=== PATIENT | female | born 1985 | race African-American/Black ===

== ENCOUNTER 2018-02-11 03:36 | Inpatient (IN) | payer SELFPAY ==
[2018-02-11 04:20] LABS: URINE HCG POC HCG NEGATIVE (Negative)
[2018-02-11 04:44] LABS: BASO # 0.1 x10^3/uL (0.0-0.2); BASO % 1 % (0-3); EOS # 0.1 x10^3/uL (0.0-0.7); EOS % 2 % (0-3); LYMPH # 3.2 x10^3/uL (1.0-4.8); LYMPH % 55 % (24-48); MEAN CORPUSCULAR HEMOGLOBIN 17 pg (25-35); MEAN CORPUSCULAR HGB CONC 29 g/dL (31-37); MEAN CORPUSCULAR VOLUME 56 fL (79-100); MONO # 0.4 x10^3/uL (0.0-1.1); MONO % 6 % (0-9); NEUT # 2.2 x10^3uL (1.8-7.7); NEUT % 37 % (31-73); PLATELET COUNT 275 x10^3/uL (140-400); RED BLOOD COUNT 3.62 x10^6/uL (3.50-5.40); RED CELL DISTRIBUTION WIDTH 19.8 % (11.5-14.5); WHITE BLOOD COUNT 5.9 x10^3/uL (4.0-11.0)
[2018-02-11] MEDS: KETOROLAC 30 MG/ML INJ. IV (04:46)
[2018-02-11 04:47] LABS: ANION GAP 10 (6-14); BLOOD UREA NITROGEN 16 mg/dL (7-20); CALCIUM 8.8 mg/dL (8.5-10.1); CARBON DIOXIDE 27 mmol/L (21-32); CHLORIDE 102 mmol/L (98-107); CREATININE 0.7 mg/dL (0.6-1.0); GFR 115.9; GLUCOSE 98 mg/dL (70-99); POTASSIUM 3.7 mmol/L (3.5-5.1); SODIUM 139 mmol/L (136-145)
[2018-02-11 04:59] LABS: ADD MAN DIFF? YES; HEMATOCRIT 20.4 % (36.0-47.0)
[2018-02-11] MEDS: ONDANSETRON PF 4 MG/2 ML VIAL. IV (05:06)
[2018-02-11] MEDS: MORPHINE SULFATE 4 MG/ML DISP.SYRIN. IV ×3 (05:06→08:19)
[2018-02-11] MEDS: IV NORMAL SALINE 1000ML BAG 1,000 ML IV ×3 (05:24→21:15)
[2018-02-11] MEDS ORDERED: ONDANSETRON PF 4 MG/2 ML VIAL. IV (05:45)
[2018-02-11 06:28] LABS: % BASOS 1 % (0-3); % EOS 2 % (0-5); % LYMPHS 55 % (24-48); % MONOS 3 % (0-10); % SEGS 39 % (35-66); PLT ESTIMATE ADEQUATE (ADEQUATE)
[2018-02-11 06:29] LABS: ANISOCYTOSIS SLIGHT; HYPOCHROMIA MARKED; POIKILOCYTOSIS MOD; SCHISTOCYTES OCC
[2018-02-11] MEDS ORDERED: oxyCODONE/APAP 5/325 1 TAB TABLET PO (09:45)
[2018-02-11] MEDS: oxyCODONE/APAP 5/325 1 TAB TABLET PO ×4 (10:04→22:25)
[2018-02-11] MEDS: IBUPROFEN 800 MG TABLET. PO ×2 (11:05→21:11)
[2018-02-11 11:08] LABS: BILIRUBIN,URINE MODERATE (NEG); CLARITY,URINE TURBID; COLOR,URINE RED; GLUCOSE,URINE NEGATIVE (NEG); NITRITE,URINE POSITIVE (NEG); PH,URINE 5.5; PROTEIN,URINE 100 mg/dL (NEG-TRACE)
[2018-02-11 11:41] LABS: BACTERIA,URINE FEW /HPF (0-FEW); RBC,URINE TNTC /HPF (0-2); SQUAMOUS EPITHELIAL CELL,UR OCC /LPF; WBC,URINE 20-40 /HPF (0-4)
[2018-02-11] MEDS: cefTRIAXone IV Push 1 GM VIAL. IVP (13:50)
[2018-02-11] MEDS: PHENAZOPYRIDINE 200 MG TABLET. PO ×2 (14:09→21:11)
[2018-02-11 15:16] LABS: MEAN CORPUSCULAR HEMOGLOBIN 18 pg (25-35); MEAN CORPUSCULAR HGB CONC 30 g/dL (31-37); MEAN CORPUSCULAR VOLUME 60 fL (79-100); PLATELET COUNT 232 x10^3/uL (140-400); RED BLOOD COUNT 3.45 x10^6/uL (3.50-5.40); RED CELL DISTRIBUTION WIDTH 22.9 % (11.5-14.5); WHITE BLOOD COUNT 8.4 x10^3/uL (4.0-11.0)
[2018-02-11 15:22] LABS: HEMATOCRIT 20.7 % (36.0-47.0); HEMOGLOBIN 6.2 g/dL (12.0-15.5)
[2018-02-12] MEDS: oxyCODONE/APAP 5/325 1 TAB TABLET PO ×4 (02:50→16:30)
[2018-02-12 04:29] LABS: ADD MAN DIFF? NO
[2018-02-12 04:44] LABS: BASO # 0.1 x10^3/uL (0.0-0.2); BASO % 1 % (0-3); EOS # 0.1 x10^3/uL (0.0-0.7); EOS % 1 % (0-3); HEMATOCRIT 22.7 % (36.0-47.0); LYMPH # 3.8 x10^3/uL (1.0-4.8); LYMPH % 39 % (24-48); MEAN CORPUSCULAR HEMOGLOBIN 19 pg (25-35); MEAN CORPUSCULAR HGB CONC 31 g/dL (31-37); MEAN CORPUSCULAR VOLUME 63 fL (79-100); MONO # 0.5 x10^3/uL (0.0-1.1); MONO % 5 % (0-9); NEUT # 5.2 x10^3uL (1.8-7.7); NEUT % 54 % (31-73); PLATELET COUNT 203 x10^3/uL (140-400); RED BLOOD COUNT 3.61 x10^6/uL (3.50-5.40); RED CELL DISTRIBUTION WIDTH 26.7 % (11.5-14.5); WHITE BLOOD COUNT 9.6 x10^3/uL (4.0-11.0)
[2018-02-12] MEDS: IV NORMAL SALINE 1000ML BAG 1,000 ML IV (04:53)
[2018-02-12 05:11] LABS: HEMOGLOBIN 6.9 g/dL (12.0-15.5)
[2018-02-12] MEDS: FERROUS SULFATE 325 MG TABLET. PO (07:30)
[2018-02-12 10:20] LABS: IMMEDIATE SPIN CROSSMATCH 1 3
[2018-02-12] MEDS: NORETHINDRONE ACETATE 5 MG TABLET PO (12:27)
[2018-02-12 16:02] LABS: HEMATOCRIT 26.3 % (36.0-47.0); HEMOGLOBIN 8.1 g/dL (12.0-15.5); MEAN CORPUSCULAR HEMOGLOBIN 20 pg (25-35); MEAN CORPUSCULAR HGB CONC 31 g/dL (31-37); MEAN CORPUSCULAR VOLUME 65 fL (79-100); PLATELET COUNT 207 x10^3/uL (140-400); RED BLOOD COUNT 4.02 x10^6/uL (3.50-5.40); RED CELL DISTRIBUTION WIDTH 29.2 % (11.5-14.5); WHITE BLOOD COUNT 6.5 x10^3/uL (4.0-11.0)
[2018-02-12] MEDS ORDERED: BISACODYL 10 MG SUPP.RECT. PR (16:30)
[2018-02-12] MEDS: cefTRIAXone IV Push 1 GM VIAL. IVP (16:32)
== END 2018-02-12 20:15 | disposition home or self-care (01) | DRG 761 ==
LOC: ER 03:36 → 3 NORTH 05:51
PROVIDERS: Obstetrics & Gynecology
PROC: 30233N1 Transfusion of Nonautologous Red Blood Cells into Peripheral Vein, Percutaneous Approach (ICD-10-PCS; principal; 2018-02-11)
PROC: 30233N1 Transfusion of Nonautologous Red Blood Cells into Peripheral Vein, Percutaneous Approach (ICD-10-PCS; 2018-02-12)
DX: D25.9 Leiomyoma of uterus, unspecified (principal); D50.0 Iron deficiency anemia secondary to blood loss (chronic); G89.29 Other chronic pain; D50.9 Iron deficiency anemia, unspecified; N93.8 Other specified abnormal uterine and vaginal bleeding; M25.571 Pain in right ankle and joints of right foot; N92.0 Excessive and frequent menstruation with regular cycle; Z88.6 Allergy status to analgesic agent; Z90.721 Acquired absence of ovaries, unilateral; Z90.79 Acquired absence of other genital organ(s)
CPT/HCPCS: 36415; 76856; 80048; 81001; 81025; 85007; 85025; 85027; 86850; 86900; 86901; 86920; 87086; 96361; 96374; 96375; 99285-25; J0696; J1885; J2270; J2405; J7030; P9016

== ENCOUNTER 2018-02-18 18:24 | Emergency (ER) | payer SELFPAY ==
[2018-02-18 18:52] LABS: URINE HCG POC HCG NEGATIVE (Negative)
[2018-02-18] MEDS: IV NORMAL SALINE 1000ML BAG 1,000 ML IV (19:22)
[2018-02-18] MEDS: MORPHINE SULFATE 4 MG/ML DISP.SYRIN. IV (19:22)
[2018-02-18 19:30] LABS: BASO # 0.1 x10^3/uL (0.0-0.2); BASO % 1 % (0-3); EOS # 0.1 x10^3/uL (0.0-0.7); EOS % 1 % (0-3); HEMATOCRIT 35.2 % (36.0-47.0); LYMPH % 41 % (24-48); MEAN CORPUSCULAR HEMOGLOBIN 21 pg (25-35); MEAN CORPUSCULAR HGB CONC 31 g/dL (31-37); MEAN CORPUSCULAR VOLUME 66 fL (79-100); MONO # 0.5 x10^3/uL (0.0-1.1); MONO % 6 % (0-9); NEUT # 3.7 x10^3uL (1.8-7.7); NEUT % 51 % (31-73); PLATELET COUNT 334 x10^3/uL (140-400); RED BLOOD COUNT 5.31 x10^6/uL (3.50-5.40); RED CELL DISTRIBUTION WIDTH 31.9 % (11.5-14.5); WHITE BLOOD COUNT 7.3 x10^3/uL (4.0-11.0)
[2018-02-18 19:31] LABS: BILIRUBIN,URINE NEGATIVE (NEG); CLARITY,URINE CLEAR; COLOR,URINE YELLOW; GLUCOSE,URINE NEGATIVE (NEG); NITRITE,URINE NEGATIVE (NEG); PH,URINE 5.5; PROTEIN,URINE 30 mg/dL (NEG-TRACE)
[2018-02-18 19:42] LABS: ADD MAN DIFF? YES; ANION GAP 8 (6-14); BLOOD UREA NITROGEN 16 mg/dL (7-20); BUN/CREATININE RATIO 23 (6-20); CALCIUM 9.1 mg/dL (8.5-10.1); CARBON DIOXIDE 26 mmol/L (21-32); CHLORIDE 102 mmol/L (98-107); CREATININE 0.7 mg/dL (0.6-1.0); GFR 115.9; GLUCOSE 86 mg/dL (70-99); POTASSIUM 3.9 mmol/L (3.5-5.1); SODIUM 136 mmol/L (136-145)
[2018-02-18 19:45] LABS: BACTERIA,URINE FEW /HPF (0-FEW); RBC,URINE OCC /HPF (0-2); SQUAMOUS EPITHELIAL CELL,UR FEW /LPF; WBC,URINE OCC /HPF (0-4)
[2018-02-18 19:48] LABS: ALBUMIN 3.9 g/dL (3.4-5.0); ALBUMIN/GLOBULIN RATIO 0.8 (1.0-1.7); ALK PHOS 50 U/L (46-116); ALT (SGPT) 27 U/L (14-59); AST (SGOT) 21 U/L (15-37); TOTAL BILIRUBIN 0.2 mg/dL (0.2-1.0); TOTAL PROTEIN 8.5 g/dL (6.4-8.2)
[2018-02-18 20:06] LABS: % BASOS 1 % (0-3); % EOS 4 % (0-5); % LYMPHS 40 % (24-48); % MONOS 4 % (0-10); % SEGS 51 % (35-66); OVALOCYTES OCC; PLT ESTIMATE INCREASED (ADEQUATE); POLYCHROMASIA SLIGHT; SCHISTOCYTES OCC
[2018-02-18] MEDS: HYDROcodone/APAP 10/325 1 TAB TABLET PO (20:54)
[2018-02-18] MEDS: MECLIZINE HCL 12.5 MG TABLET. PO (20:54)
[2018-02-18] MEDS: ONDANSETRON ODT 4 MG TAB.RAPDIS. PO (20:54)
== END 2018-02-18 21:00 | disposition home or self-care (01) ==
LOC: ER 18:24
DX: D25.9 Leiomyoma of uterus, unspecified (principal); R55 Syncope and collapse; G89.29 Other chronic pain; Z90.722 Acquired absence of ovaries, bilateral
CPT/HCPCS: 36415; 80053; 81001; 81025; 84702; 85007; 85025; 93005; 96361; 96374; 99285-25; J2270; J7030; J8597; Q0162

== ENCOUNTER 2018-03-31 10:51 | Emergency (ER) | payer SELFPAY ==
[2018-03-31 11:11] LABS: URINE HCG POC HCG NEGATIVE (Negative)
[2018-03-31 11:12] LABS: BILIRUBIN,URINE NEGATIVE (NEG); CLARITY,URINE CLEAR; COLOR,URINE YELLOW; GLUCOSE,URINE NEGATIVE (NEG); NITRITE,URINE NEGATIVE (NEG); PH,URINE 6.5; PROTEIN,URINE NEGATIVE (NEG-TRACE)
[2018-03-31] MEDS: HYDROcodone/APAP 5/325MG 1 TAB TABLET PO (11:15)
[2018-03-31 11:40] LABS: BACTERIA,URINE FEW /HPF (0-FEW); SQUAMOUS EPITHELIAL CELL,UR MANY /LPF
[2018-03-31] MEDS: BISACODYL 5 MG TABLET.DR. PO (12:11)
[2018-03-31] MEDS: ONDANSETRON ODT 4 MG TAB.RAPDIS. PO (12:11)
[2018-03-31] MEDS: MAGNESIUM CITRATE 296 ML SOLUTION. PO (12:12)
== END 2018-03-31 12:25 | disposition left against medical advice (07) ==
LOC: ER 10:51
DX: K59.00 Constipation, unspecified (principal); R10.9 Unspecified abdominal pain; G89.29 Other chronic pain; Z88.8 Allergy status to other drugs, medicaments and biological substances
CPT/HCPCS: 81001; 81025; 99284; Q0162

== ENCOUNTER 2018-06-04 21:33 | Emergency (ER) | payer SELFPAY ==
[~2018-06-04] VITALS: Ht 160 cm; Wt 69.9 kg
[~2018-06-04 21:33] MED LIST: MECL25TA3 PO; NORE5TAB PO; ONDA4TAB7 PO; OXYC-323 PO; OXYC1TAB7 PO
[2018-06-04 22:35] LABS: CALCIUM 9.3 mg/dL (8.5-10.1); CREATININE 0.7 mg/dL (0.6-1.0); GFR 115.9; POTASSIUM 4.5 mmol/L (3.5-5.1)
[2018-06-04 22:36] LABS: BASO # 0.1 x10^3/uL (0.0-0.2); BASO % 1 % (0-3); EOS # 0.2 x10^3/uL (0.0-0.7); EOS % 3 % (0-3); HEMATOCRIT 28.9 % (36.0-47.0); HEMOGLOBIN 8.8 g/dL (12.0-15.5); LYMPH # 2.3 x10^3/uL (1.0-4.8); LYMPH % 35 % (24-48); MEAN CORPUSCULAR HEMOGLOBIN 22 pg (25-35); MEAN CORPUSCULAR HGB CONC 31 g/dL (31-37); MEAN CORPUSCULAR VOLUME 70 fL (79-100); MONO # 0.5 x10^3/uL (0.0-1.1); MONO % 7 % (0-9); NEUT # 3.5 x10^3uL (1.8-7.7); NEUT % 53 % (31-73); PLATELET COUNT 242 x10^3/uL (140-400); RED CELL DISTRIBUTION WIDTH 21.5 % (11.5-14.5); WHITE BLOOD COUNT 6.5 x10^3/uL (4.0-11.0)
[2018-06-04 22:42] LABS: ALBUMIN 3.8 g/dL (3.4-5.0); TOTAL BILIRUBIN 0.6 mg/dL (0.2-1.0); TOTAL PROTEIN 7.8 g/dL (6.4-8.2)
[2018-06-04] MEDS: IV NORMAL SALINE 1000ML BAG 1,000 ML IV ONE (22:54)
[2018-06-04 23:00] LABS: BILIRUBIN,URINE NEGATIVE (NEG); CLARITY,URINE CLEAR; COLOR,URINE YELLOW; NITRITE,URINE NEGATIVE (NEG); PROTEIN,URINE NEGATIVE (NEG-TRACE)
[2018-06-04 23:10] LABS: BACTERIA,URINE MODERATE /HPF (0-FEW); RBC,URINE OCC /HPF (0-2); SQUAMOUS EPITHELIAL CELL,UR MOD /LPF
[2018-06-04] MEDS: ONDANSETRON PF 4 MG/2 ML VIAL. IV ONE (23:18)
[2018-06-04] MEDS: fentaNYL PF VIAL 100 MCG/2 ML VIAL IV ONE (23:19)
[2018-06-04 23:27] LABS: ANISOCYTOSIS MOD; HYPOCHROMIA MOD; MICROCYTOSIS MOD; PLT ESTIMATE ADEQUATE (ADEQUATE); POLYCHROMASIA SLIGHT
[2018-06-04 23:28] LABS: OVALOCYTES OCC; TEAR DROP CELLS OCC
[2018-06-04 23:29] LABS: POIKILOCYTOSIS PRESENT; SCHISTOCYTES FEW
[2018-06-04] MEDS ORDERED: CONTRAST GIVEN. MC PRN (23:45)
[2018-06-04] MEDS: IOHEXOL 300 MG/ML 100ML VIAL. IV ONE (23:53)
--- NOTE | 2018-06-05 00:09 | RAD ---
PQRS Compliance statement: One or more of the following individualized dose reduction techniques were utilized for this examination: 1. Automated exposure control. 2. Adjustment of the mA and/or kV according to patient size. 3. Use of iterative reconstruction technique. Indication:abd pain,vaginal bleeding; post hysterectomy x 1 week ago; Omni 300, 75ml TECHNIQUE: CT abdomen and pelvis with IV contrast with multiplanar reformats. COMPARISON: 05/27/2014 FINDINGS: Heart is normal in size. No pericardial or pleural effusion. Clear lung bases. Liver, spleen, gallbladder, pancreas, adrenals and right kidney within normal limits. Punctate nonobstructing left renal stone. No enlarged retroperitoneal or pelvic adenopathy. No free pelvic fluid or ascites. No bowel obstruction. Normal appendix. Status post hysterectomy. Urinary bladder within normal limits. No pneumoperitoneum. Abdominal wall inflammatory changes seen likely postsurgical. Trace amount of ascites seen in the vaginal canal. No suspicious bony lesion. IMPRESSION: 1. Status post cystectomy. No loculated fluid collection or pelvis to suggest abscess or seroma. 2. Punctate nonobstructing left renal stone. 3. Anterior abdominal wall inflammatory changes with trace emphysema most likely postsurgical changes. Electronically signed by: Boaz Martinez DO (06/05/2018 12:05 AM) [facility]
[2018-06-05] MEDS: fentaNYL PF VIAL 100 MCG/2 ML VIAL IV ONE (00:29)
--- NOTE | 2018-06-05 00:29 | PHYS DOC ---
Past Medical History Past Medical History: No Pertinent History Additional Past Medical Histor: chronic right ankle pain, FIBROIDS Past Surgical History: , Hysterectomy, Tubal ligation Additional Past Surgical Histo: L) fallopian tube removed, ECTOPIC Additional Information: 09/10 PPD Alcohol Use: None Drug Use: None Adult General Chief Complaint Chief Complaint: VAGINAL BLEEDING [facility] HPI Patient is a 33 year old [f__sex] who presents with [] Review of Systems Review of Systems Constitutional: Denies fever or chills [] Eyes: Denies change in visual acuity, redness, or eye pain [] HENT: Denies nasal congestion or sore throat [] Respiratory: Denies cough or shortness of breath [] Cardiovascular: No additional information not addressed in HPI [] GI: Denies abdominal pain, nausea, vomiting, bloody stools or diarrhea [] : Denies dysuria or hematuria [] Musculoskeletal: Denies back pain or joint pain [] Integument: Denies rash or skin lesions [] Neurologic: Denies headache, focal weakness or sensory changes [] Endocrine: Denies polyuria or polydipsia [] All other systems were reviewed and found to be within normal limits, except as documented in this note. Current Medications Current Medications Current Medications Medications (Trade) Dose Ordered Sig/Corinne Start Time Stop Time Status Last Admin Dose Admin Fentanyl Citrate (Fentanyl 2ml Vial) 50 mcg 1X ONCE 06/05/18 00:45 06/05/18 00:46 DC 06/05/18 00:29 50 MCG Info (CONTRAST GIVEN -- Rx MONITORING) 1 each PRN DAILY PRN 06/04/18 23:45 06/06/18 23:44 Iohexol (Omnipaque 300 Mg/ml) 75 ml 1X ONCE 06/04/18 23:45 06/04/18 23:46 DC 06/04/18 23:53 75 ML Ondansetron HCl (Zofran) 4 mg 1X ONCE 06/04/18 23:30 06/04/18 23:31 DC 06/04/18 23:18 4 MG Sodium Chloride 1,000 ml @ 1,000 mls/hr 1X ONCE 06/04/18 23:00 06/04/18 23:59 DC 06/04/18 22:54 1,000 MLS/HR Allergies Allergies Allergies Coded Allergies Type Severity Reaction Last Updated Verified naproxen Allergy Intermediate "Chest hurts" 11/3/14 Yes Physical Exam Physical Exam Constitutional: Well developed, well nourished, no acute distress, non-toxic appearance. [] HENT: Normocephalic, atraumatic, bilateral external ears normal, oropharynx moist, no oral exudates, nose normal. [] Eyes: PERRLA, EOMI, conjunctiva normal, no discharge. [] Neck: Normal range of motion, no tenderness, supple, no stridor. [] Cardiovascular:Heart rate regular rhythm, no murmur [] Lungs & Thorax: Bilateral breath sounds clear to auscultation [] Abdomen: Bowel sounds normal, soft, no tenderness, no masses, no pulsatile masses. [] Skin: Warm, dry, no erythema, no rash. [] Back: No tenderness, no CVA tenderness. [] Extremities: No tenderness, no cyanosis, no clubbing, ROM intact, no edema. [] Neurologic: Alert and oriented X 3, normal motor function, normal sensory function, no focal deficits noted. [] Psychologic: Affect normal, judgement normal, mood normal. [] Current Patient Data Vital Signs Vital Signs Date Time Temp Pulse Resp B/P (MAP) Pulse Ox O2 Delivery O2 Flow Rate FiO2 06/05/18 00:29 15 100 Room Air 06/04/18 21:42 99.6 66 184/89 (120) 99.6 Lab Values Laboratory Tests Test 06/04/18 21:55 06/04/18 22:34 06/04/18 23:28 White Blood Count 6.5 x10^3/uL (4.0-11.0) Red Blood Count 4.10 x10^6/uL (3.50-5.40) Hemoglobin 8.8 g/dL (12.0-15.5) L Hematocrit 28.9 % (36.0-47.0) L Mean Corpuscular Volume 70 fL (79-100) L Mean Corpuscular Hemoglobin 22 pg (25-35) L Mean Corpuscular Hemoglobin Concent 31 g/dL (31-37) Red Cell Distribution Width 21.5 % (11.5-14.5) H Platelet Count 242 x10^3/uL (140-400) Neutrophils (%) (Auto) 53 % (31-73) Lymphocytes (%) (Auto) 35 % (24-48) Monocytes (%) (Auto) 7 % (0-9) Eosinophils (%) (Auto) 3 % (0-3) Basophils (%) (Auto) 1 % (0-3) Neutrophils # (Auto) 3.5 x10^3uL (1.8-7.7) Lymphocytes # (Auto) 2.3 x10^3/uL (1.0-4.8) Monocytes # (Auto) 0.5 x10^3/uL (0.0-1.1) Eosinophils # (Auto) 0.2 x10^3/uL (0.0-0.7) Basophils # (Auto) 0.1 x10^3/uL (0.0-0.2) Platelet Estimate Adequate (ADEQUATE) Giant Platelets Present Polychromasia Slight Hypochromasia Mod Poikilocytosis Present Anisocytosis Mod Microcytosis Mod Tear Drop Cells Occ Ovalocytes Occ Schistocytes Few Sodium Level 140 mmol/L (136-145) Potassium Level 4.5 mmol/L (3.5-5.1) Chloride Level 104 mmol/L (98-107) Carbon Dioxide Level 29 mmol/L (21-32) Anion Gap 7 (6-14) Blood Urea Nitrogen 13 mg/dL (7-20) Creatinine 0.7 mg/dL (0.6-1.0) Estimated GFR (Cockcroft-Gault) 115.9 BUN/Creatinine Ratio 19 (6-20) Glucose Level 89 mg/dL (70-99) Calcium Level 9.3 mg/dL (8.5-10.1) Total Bilirubin 0.6 mg/dL (0.2-1.0) Aspartate Amino Transferase (AST) 27 U/L (15-37) Alanine Aminotransferase (ALT) 16 U/L (14-59) Alkaline Phosphatase 44 U/L (46-116) L Total Protein 7.8 g/dL (6.4-8.2) Albumin 3.8 g/dL (3.4-5.0) Albumin/Globulin Ratio 1.0 (1.0-1.7) Lipase 98 U/L (73-393) Urine Collection Type Unknown Urine Color Yellow Urine Clarity Clear Urine pH 7.0 Urine Specific [place] 1.020 Urine Protein Negative mg/dL (NEG-TRACE) Urine Glucose (UA) Negative mg/dL (NEG) Urine Ketones (Stick) Negative mg/dL (NEG) Urine Blood Moderate (NEG) Urine Nitrite Negative (NEG) Urine Bilirubin Negative (NEG) Urine Urobilinogen Dipstick 2.0 mg/dL (0.2 mg/dL) Urine Leukocyte Esterase Moderate (NEG) Urine RBC Occ /HPF (0-2) Urine WBC 5-10 /HPF (0-4) Urine Squamous Epithelial Cells Mod /LPF Urine Bacteria Moderate /HPF (0-FEW) Urine Mucus Slight /LPF Prothrombin Time 14.0 SEC (11.7-14.0) Prothrombin Time INR 1.1 (0.8-1.1) PTT 28 SEC (24-38) Laboratory Tests 06/04/18 21:55 Laboratory Tests 06/04/18 21:55 EKG EKG [] Radiology/Procedures Radiology/Procedures PROCEDURE: CT ABD PELV W/ IV CONTRST ONLY PQRS Compliance statement: One or more of the following individualized dose reduction techniques were utilized for this examination: 1. Automated exposure control. 2. Adjustment of the mA and/or kV according to patient size. 3. Use of iterative reconstruction technique. Indication:abd pain,vaginal bleeding; post hysterectomy x 1 week ago; Omni 300, 75ml TECHNIQUE: CT abdomen and pelvis with IV contrast with multiplanar reformats. COMPARISON: 05/27/2014 FINDINGS: Heart is normal in size. No pericardial or pleural effusion. Clear lung bases. Liver, spleen, gallbladder, pancreas, adrenals and right kidney within normal limits. Punctate nonobstructing left renal stone. No enlarged retroperitoneal or pelvic adenopathy. No free pelvic fluid or ascites. No bowel obstruction. Normal appendix. Status post hysterectomy. Urinary bladder within normal limits. No pneumoperitoneum. Abdominal wall inflammatory changes seen likely postsurgical. Trace amount of ascites seen in the vaginal canal. No suspicious bony lesion. IMPRESSION: 1. Status post cystectomy. No loculated fluid collection or pelvis to suggest abscess or seroma. 2. Punctate nonobstructing left renal stone. 3. Anterior abdominal wall inflammatory changes with trace emphysema most likely postsurgical changes. Electronically signed by: Boaz Martinez DO (06/05/2018 12:05 AM) [facility] Course & Med Decision Making Course & Med Decision Making Pertinent Labs and Imaging studies reviewed. (See chart for details) [] Dragon Disclaimer Dragon Disclaimer This electronic medical record was generated, in whole or in part, using a voice recognition dictation system. Departure Departure Impression: Primary Impression: Postoperative pain Additional Impression: Postoperative vaginal bleeding Disposition: HOME, SELF-CARE Condition: STABLE Referrals: NO PCP (PCP) Patient Instructions: Pain Relief Preoperatively and Postoperatively Scripts Oxycodone/Apap 5-325 (PERCOCET 5-325 MG TABLET) 1 Each Tablet 1 TAB PO PRN Q6HRS PRN for PAIN, #6 TAB 0 Refills Prov: MARIANA SHAY DO 06/05/18 Problem Qualifiers MARIANA SHAY DO Jun 05, 2018 00:28
[2018-06-05 01:00] VITALS: BP 164/73
[2018-06-05] MEDS ORDERED: OXYC-323 PO (01:07)
[2018-06-05] MEDS: oxyCODONE/APAP 5/325 1 TAB TABLET PO ONE (01:24)
[2018-06-05] MEDS ORDERED: IOHEXOL 300 MG/ML 100ML VIAL. ONE (05:20)
== END 2018-06-05 01:18 | disposition home or self-care (01) ==
LOC: ER 21:33
DX: G89.18 Other acute postprocedural pain (principal); N93.8 Other specified abnormal uterine and vaginal bleeding; G89.29 Other chronic pain; F17.200 Nicotine dependence, unspecified, uncomplicated; Z90.710 Acquired absence of both cervix and uterus; Z98.890 Other specified postprocedural states; Z98.51 Tubal ligation status; Z88.8 Allergy status to other drugs, medicaments and biological substances
CPT/HCPCS: 36415; 74177; 80053; 81001; 83690; 85025; 85610; 85730; 87086; 96374; 96375; 96376; 99285; J2405; J3010; J7030; Q9967

== ENCOUNTER 2018-11-16 13:53 | Emergency (ER) | payer SELFPAY ==
[~2018-11-16] VITALS: Ht 160 cm; Wt 69.9 kg
[~2018-11-16 13:53] MED LIST changes: -OXYC-323 PO; +OXYC1TAB15 PO
[2018-11-16 15:04] VITALS: BP 196/101
[2018-11-16] MEDS ORDERED: AMOX1TAB61 PO (15:56)
[2018-11-16] MEDS ORDERED: HYDR-2761 PO (15:56)
--- NOTE | 2018-11-16 15:57 | PHYS DOC ---
Past Medical History Past Medical History: No Pertinent History Additional Past Medical Histor: chronic right ankle pain, FIBROIDS Past Surgical History: , Hysterectomy, Tubal ligation Additional Past Surgical Histo: L) fallopian tube removed, ECTOPIC Alcohol Use: None Drug Use: None Adult General Chief Complaint Chief Complaint: DENTAL PROBLEM HPI HPI Patient is a 33 year old AA female who presents to the ER with complaints of increased left upper dental pain and swelling for the last 2 days. She states that she has had problems with dental decay for months but that the pain increased 2 days ago. She denies any injury, fever, nausea, or vomiting. She states she has been unable to go to the dentist to have the teeth removed because of a lack of insurance. She rates the pain a 10/10 on the pain scale she has been taking ibuprofen and tylenol with no relief of her pain. Review of Systems Review of Systems Constitutional: Denies fever or chills [] HENT: Denies nasal congestion or sore throat; see HPI[] GI: Denies abdominal pain, nausea, or vomiting, Integument: Denies rash or skin lesions [] Neurologic: Denies headache, Current Medications Current Medications Current Medications Medications (Trade) Dose Ordered Sig/Corinne Start Time Stop Time Status Last Admin Dose Admin Acetaminophen/ Hydrocodone Bitart (Lortab 5/325) 1 tab 1X ONCE 11/16/18 16:00 11/16/18 16:01 Amoxicillin/ Clavulanate Potassium (Augmentin 875/ 125mg) 1 tab 1X ONCE 11/16/18 16:00 11/16/18 16:01 Allergies Allergies Allergies Coded Allergies Type Severity Reaction Last Updated Verified naproxen Allergy Intermediate "Chest hurts" 07/12/14 Yes Physical Exam Physical Exam Constitutional: Well developed, well nourished, no acute distress, non-toxic appearance. [] HENT: Normocephalic, atraumatic, bilateral external ears normal, bilateral TMs normal, oropharynx moist, no oral exudates, nose normal; diffuse dental decay noted, gingival edema and erythema noted to LUQ, no visible dental abscess Eyes: conjunctiva normal, no discharge. [] Neck: Normal range of motion, no tenderness, supple, no stridor. [] Skin: Warm, dry, no erythema, no rash. [] Neurologic: Alert and oriented X 3, no focal deficits noted. [] Psychologic: Affect normal, judgement normal, mood normal. [] Current Patient Data Vital Signs Vital Signs Date Time Temp Pulse Resp B/P (MAP) Pulse Ox O2 Delivery O2 Flow Rate FiO2 11/16/18 15:04 98.0 74 18 196/101 (132) 100 Room Air 98.0 EKG EKG [] Radiology/Procedures Radiology/Procedures [] Course & Med Decision Making Course & Med Decision Making Pertinent Labs and Imaging studies reviewed. (See chart for details) Dx: infected dental caries, dentalgia Pt was given one augmentin 875 mg tab and one lortab 5/325 in the ER. Pt states she has peridex at home, she was encouraged to use this medication twice daily for the next 10 days. Prescriptions written for augmentin and lortab. Dental referral sheet provided. Pt encouraged to follow up with dentist as soon as possible. Patient verbalized an understanding of home care, medications, follow- up, and return to ED instructions and was in agreement with the plan of care. [] Dragon Disclaimer Dragon Disclaimer This electronic medical record was generated, in whole or in part, using a voice recognition dictation system. Departure Departure Impression: Primary Impression: Infected dental caries Additional Impression: Pain, dental Disposition: 01 HOME, SELF-CARE Condition: STABLE Referrals: NO PCP (PCP) Patient Instructions: Dental Caries, Dental Pain, [id number] Additional Instructions: Fill prescriptions and use as directed. Follow up with dentist using the referral list provided. Return to the ER if symptoms worsen. Scripts Hydrocodone Bit/Acetaminophen (HYDROCODONE-APAP 5-325 ) 1 Tab Tablet 1 TAB PO PRN Q6HRS PRN for PAIN for 2 Days, #5 TAB 0 Refills Prov: RON HOPE CLAY CARMAN 11/16/18 Amoxicillin/Potassium Clav (AUGMENTIN 875-125 TABLET) 1 Each Tablet 1 TAB PO BID, #20 TAB Prov: RON HOPE CLAY CARMAN 11/16/18 Problem Qualifiers RON HOPE CLAY CARMAN Nov 16, 2018 15:57
[2018-11-16] MEDS ORDERED: AMOXICILLIN/K CLAV 875/125MG TABLET. PO ONE (16:00)
[2018-11-16] MEDS ORDERED: HYDROcodone/APAP 5/325MG 1 TAB TABLET PO ONE (16:00)
== END 2018-11-16 16:13 | disposition home or self-care (01) ==
LOC: ER 13:53
DX: K02.9 Dental caries, unspecified (principal); G89.29 Other chronic pain; Z98.890 Other specified postprocedural states; Z90.710 Acquired absence of both cervix and uterus; Z98.51 Tubal ligation status
CPT/HCPCS: 99283

== ENCOUNTER 2018-12-11 19:51 | Emergency (ER) | payer SELFPAY ==
[~2018-12-11] VITALS: Ht 160 cm; Wt 69.9 kg
[~2018-12-11 19:51] MED LIST changes: +AMOX1TAB61 PO; +HYDR-2761 PO
[2018-12-11 20:24] VITALS: BP 177/96
[2018-12-11] MEDS ORDERED: MUPI15CR8 TP (21:59)
[2018-12-11] MEDS ORDERED: CEPH-264 PO (21:59)
[2018-12-11] MEDS ORDERED: PRED20TA PO (21:59)
--- NOTE | 2018-12-11 21:59 | PHYS DOC ---
Past Medical History Past Medical History: No Pertinent History Additional Past Medical Histor: chronic right ankle pain, FIBROIDS Past Surgical History: , Hysterectomy, Tubal ligation Additional Past Surgical Histo: L) fallopian tube removed, ECTOPIC Alcohol Use: None Drug Use: None Adult General Chief Complaint Chief Complaint: SKIN RASH/ABSCESS [facility] Patient is a 33 year old [f__sex] who presents with [] Review of Systems Review of Systems Constitutional: Denies fever or chills [] Eyes: Denies change in visual acuity, redness, or eye pain [] HENT: Denies nasal congestion or sore throat [] Respiratory: Denies cough or shortness of breath [] Cardiovascular: No additional information not addressed in HPI [] GI: Denies abdominal pain, nausea, vomiting, bloody stools or diarrhea [] : Denies dysuria or hematuria [] Musculoskeletal: Denies back pain or joint pain [] Integument: Denies rash or skin lesions [] Neurologic: Denies headache, focal weakness or sensory changes [] Endocrine: Denies polyuria or polydipsia [] All other systems were reviewed and found to be within normal limits, except as documented in this note. Allergies Allergies Allergies Coded Allergies Type Severity Reaction Last Updated Verified naproxen Allergy Intermediate "Chest hurts" 07/12/14 Yes Physical Exam Physical Exam Constitutional: Well developed, well nourished, no acute distress, non-toxic appearance. [] HENT: Normocephalic, atraumatic, bilateral external ears normal, oropharynx moist, no oral exudates, nose normal. [] Eyes: PERRLA, EOMI, conjunctiva normal, no discharge. [] Neck: Normal range of motion, no tenderness, supple, no stridor. [] Cardiovascular:Heart rate regular rhythm, no murmur [] Lungs & Thorax: Bilateral breath sounds clear to auscultation [] Abdomen: Bowel sounds normal, soft, no tenderness, no masses, no pulsatile masses. [] Skin: Warm, dry, no erythema, no rash. [] Back: No tenderness, no CVA tenderness. [] Extremities: No tenderness, no cyanosis, no clubbing, ROM intact, no edema. [] Neurologic: Alert and oriented X 3, normal motor function, normal sensory function, no focal deficits noted. [] Psychologic: Affect normal, judgement normal, mood normal. [] Current Patient Data Vital Signs Vital Signs Date Time Temp Pulse Resp B/P (MAP) Pulse Ox O2 Delivery O2 Flow Rate FiO2 12/11/18 20:24 98.2 68 16 177/96 (123) 100 Room Air 98.2 EKG EKG [] Radiology/Procedures Radiology/Procedures [] Course & Med Decision Making Course & Med Decision Making Pertinent Labs and Imaging studies reviewed. (See chart for details) [] Dragon Disclaimer Dragon Disclaimer This electronic medical record was generated, in whole or in part, using a voice recognition dictation system. Departure Departure Impression: Primary Impression: Contact dermatitis Disposition: HOME, SELF-CARE Condition: STABLE Referrals: NO PCP (PCP) Patient Instructions: Contact Dermatitis, [id number] Scripts Mupirocin Calcium (MUPIROCIN CREAM) 15 Gm Cream..g. 1 YOSHI TP TID for 10 Days, TUBE Prov: MARIANA SHAY DO 12/11/18 Prednisone (PREDNISONE) 20 Mg Tablet 2 TAB PO DAILY, #8 TAB Start this prescription tomorrow, Saturday12/12/18 Prov: MARIANA SHAY DO 12/11/18 Cephalexin (KEFLEX) 500 Mg Capsule 500 MG PO QID for 10 Days, #40 CAP Prov: MARIANA SHAY DO 12/11/18 Problem Qualifiers Primary Impression: Contact dermatitis Contact dermatitis type: unspecified Contact dermatitis trigger: unspecified trigger Qualified Codes: L25.9 - Unspecified contact dermatitis, unspecified cause MARIANA SHAY DO Dec 11, 2018 21:59
[2018-12-11] MEDS ORDERED: oxyCODONE/APAP 5/325 1 TAB TABLET PO ONE (22:00)
[2018-12-11] MEDS ORDERED: DEXAMETHASONE SOD PHOS 20 MG/5 ML VIAL. IV ONE (22:00)
[2018-12-11] MEDS ORDERED: CEPHALEXIN 250 MG CAPSULE. PO ONE (22:00)
[2018-12-11] MEDS ORDERED: NEOMY/BACITR/POLYMYXIN OINT PACKET. TP ONE (22:00)
[2018-12-11] MEDS ORDERED: FAMOTIDINE 20 MG TABLET. PO ONE (22:00)
[2018-12-11] MEDS ORDERED: KETOROLAC 30 MG/ML VIAL. IM ONE (22:00)
[2018-12-11] MEDS ORDERED: DEXAMETHASONE SOD PHOS 20 MG/5 ML VIAL. IM ONE (22:15)
== END 2018-12-11 22:14 | disposition home or self-care (01) ==
LOC: ER 19:51
DX: L25.9 Unspecified contact dermatitis, unspecified cause (principal); G89.29 Other chronic pain; Z98.890 Other specified postprocedural states; Z90.710 Acquired absence of both cervix and uterus; Z98.51 Tubal ligation status; Z88.8 Allergy status to other drugs, medicaments and biological substances
CPT/HCPCS: 96372; 99284; J1100; J1885

== ENCOUNTER 2019-02-02 11:51 | Emergency (ER) | payer SELFPAY ==
[~2019-02-02] VITALS: Ht 160 cm; Wt 80.3 kg
[~2019-02-02 11:51] MED LIST changes: +CEPH-264 PO; +MUPI15CR8 TP; +PRED20TA PO
[2019-02-02 11:57] VITALS: BP 183/94
--- NOTE | 2019-02-02 12:19 | PHYS DOC ---
Past Medical History Past Medical History: No Pertinent History Additional Past Medical Histor: chronic right ankle pain, FIBROIDS Past Surgical History: Hysterectomy Additional Past Surgical Histo: L) fallopian tube removed, ECTOPIC Alcohol Use: None Drug Use: None Adult General Chief Complaint Chief Complaint: SKIN RASH/ABSCESS [facility] HPI Patient is a 33 year old female who presents to the ED today complaining of a pruritic rash for 1 month. Patient is very upset stating she was seen in the ED and we wrote her a prescription for $100 topical medicine. She states the prescription helped but the medicine is very expensive. She states she followed up with a health care coordinator who requested her to have light therapy. She states she cannot afford it. She continues to be very upset. She states she has the rash in her left ear and would like the ear to be evaluated. She states she can not ear well in the left ear. As we were talking informed patient I will be glad to evaluate her ear but the long-term care for her rash considering will need to follow-up with a health care coordinator and ENT if she has hearing issues. Patient continues to complain, she got phone, she called her mother and started complaining about [facility]. She walked out and left. Review of Systems Review of Systems Constitutional: Denies fever or chills [] Eyes: Denies change in visual acuity, redness, or eye pain [] HENT: Denies nasal congestion or sore throat [] Respiratory: Denies cough or shortness of breath [] Cardiovascular: No additional information not addressed in HPI [] GI: Denies abdominal pain, nausea, vomiting, bloody stools or diarrhea [] : Denies dysuria or hematuria [] Musculoskeletal: Denies back pain or joint pain [] Integument: Reports rash, reports rash in the left ear Neurologic: Denies headache, focal weakness or sensory changes [] All other systems were reviewed and found to be within normal limits, except as documented in this note. Allergies Allergies Allergies Coded Allergies Type Severity Reaction Last Updated Verified naproxen Allergy Intermediate "Chest hurts" 07/12/14 Yes Physical Exam Physical Exam Constitutional: Well developed, well nourished, no acute distress, non-toxic appearance. [] HENT: Normocephalic, atraumatic, bilateral external ears normal, oropharynx moist, no oral exudates, nose normal. Exterior aspect of the left ear with similar rash to the one documented on skin. There is mild cerumen in the left TM. Eyes: PERRLA, EOMI, conjunctiva normal, no discharge. [] Neck: Normal range of motion, no tenderness, supple, no stridor. [] Cardiovascular:Heart rate regular rhythm, no murmur [] Lungs & Thorax: Bilateral breath sounds clear to auscultation [] Abdomen: Bowel sounds normal, soft, no tenderness, no masses, no pulsatile masses. [] Skin: Patient has moderate amount of nonerythematous rash throughout her body with scarring and excoriation from itching. Some of this scarring appears old. Back: No tenderness, no CVA tenderness. [] Extremities: No tenderness, no cyanosis, no clubbing, ROM intact, no edema. [] Neurologic: Alert and oriented X 3, normal motor function, normal sensory function, no focal deficits noted. [] Psychologic: Affect normal, judgement normal, mood normal. [] Current Patient Data Vital Signs Vital Signs Date Time Temp Pulse Resp B/P (MAP) Pulse Ox O2 Delivery O2 Flow Rate FiO2 02/02/19 11:57 98.7 88 18 183/94 (123) 99 Room Air 98.7 EKG EKG [] Radiology/Procedures Radiology/Procedures [] Course & Med Decision Making Course & Med Decision Making Pertinent Labs and Imaging studies reviewed. (See chart for details) See history of present illness Dragon Disclaimer Dragon Disclaimer This electronic medical record was generated, in whole or in part, using a voice recognition dictation system. Departure Departure Impression: Primary Impression: Contact dermatitis Additional Impression: Impacted cerumen of left ear Disposition: HOME, SELF-CARE (I normal, mood and) Condition: STABLE Referrals: NO PCP (PCP) Problem Qualifiers Primary Impression: Contact dermatitis Contact dermatitis type: unspecified Contact dermatitis trigger: unspecified trigger Qualified Codes: L25.9 - Unspecified contact dermatitis , unspecified cause ALFREDO EDMONDSON APRN February 02, 2019 12:19
== END 2019-02-02 12:20 | disposition home or self-care (01) ==
LOC: ER 11:51
DX: L25.9 Unspecified contact dermatitis, unspecified cause (principal); H61.22 Impacted cerumen, left ear; G89.29 Other chronic pain; Z90.710 Acquired absence of both cervix and uterus; Z88.8 Allergy status to other drugs, medicaments and biological substances
CPT/HCPCS: 99281

== ENCOUNTER 2020-01-09 15:14 | Emergency (ER) | payer SELFPAY ==
[~2020-01-09] VITALS: Ht 160 cm; Wt 77.0 kg
[~2020-01-09 15:14] MED LIST changes: +MECL-75 PO; -MECL25TA3 PO
[2020-01-09 15:40] VITALS: BP 173/118
--- NOTE | 2020-01-09 15:56 | PHYS DOC ---
Past Medical History Past Medical History: No Pertinent History Additional Past Medical Histor: chronic right ankle pain, FIBROIDS Past Surgical History: Hysterectomy Additional Past Surgical Histo: L) fallopian tube removed, ECTOPIC Smoking Status: Unknown if ever smoked Alcohol Use: None Drug Use: None General Adult EDM: Chief Complaint: ABDOMINAL PAIN HPI: HPI: Patient is a 34-year-old otherwise healthy female with a history of a hysterectomy presents with 2 to 3-day history of lower abdominal pain. She states it started around the periumbilical area and has moved more towards her lower abdomen and right lower quadrant. She is feels a little queasy but denies any vomiting. She is not any fever chills or sweats. She denies any dysuria or gross hematuria. She denies any back or flank pain. [] Review of Systems: Review of Systems: Constitutional: Denies fever or chills. [] Eyes: Denies change in visual acuity. [] HENT: Denies nasal congestion or sore throat. [] Respiratory: Denies cough or shortness of breath. [] Cardiovascular: Denies chest pain or edema. [] GI: Per HPI. [] : Denies dysuria. [] Musculoskeletal: Denies back pain or joint pain. [] Integument: Denies rash. [] Neurologic: Denies headache, focal weakness or sensory changes. [] Endocrine: Denies polyuria or polydipsia. [] Lymphatic: Denies swollen glands. [] Psychiatric: Denies depression or anxiety. [] Heart Score: Risk Factors: Risk Factors: DM, Current or recent (<one month) smoker, HTN, HLP, family history of CAD, obesity. Risk Scores: Score 0 - 3: 2.5% MACE over next 6 weeks - Discharge Home Score 4 - 6: 20.3% MACE over next 6 weeks - Admit for Clinical Observation Score 7 - 10: 72.7% MACE over next 6 weeks - Early Invasive Strategies Allergies: Allergies: Allergies Coded Allergies Type Severity Reaction Last Updated Verified naproxen Allergy Intermediate "Chest hurts" 07/12/14 Yes Physical Exam: PE: Constitutional: Well developed, well nourished, mild to moderate distress, non- toxic appearance. [] HENT: Normocephalic, atraumatic, bilateral external ears normal, oropharynx moist, no oral exudates, nose normal. [] Eyes: PERRLA, EOMI, conjunctiva normal, no discharge. [] Neck: Normal range of motion, no tenderness, supple, no stridor. [] Cardiovascular:Heart rate regular rhythm, no murmur [] Lungs & Thorax: Bilateral breath sounds clear to auscultation [] Abdomen: Diffusely tender to palp no rebound or guarding more localized tenderness in the right lower quadrant positive McBurney's. [] Skin: Warm, dry, no erythema, no rash. [] Back: No tenderness, no CVA tenderness. [] Extremities: No tenderness, no cyanosis, no clubbing, ROM intact, no edema. [] Neurologic: Alert and oriented X 3, normal motor function, normal sensory function, no focal deficits noted. [] Psychologic: Anxious. [] EKG: EKG: [] Radiology/Procedures: Radiology/Procedures: [] Impression: PROCEDURE: CT ABD PELV W/ IV CONTRST ONLY CT abdomen and pelvis with IV contrast 01/09/2020. Reason for exam: Lower abdominal pain for [address] images were made through the abdomen and pelvis using an infusion of 75 mL Omnipaque 300. No oral contrast was given. Exposure: One or more of the following individualized dose reduction techniques were utilized for this examination: 1. Automated exposure control 2. Adjustment of the mA and/or kV according to patient size 3. Use of iterative reconstruction technique. Comparison is made with a study of 06/04/2018. FINDINGS: The lung bases are clear. The liver and spleen are homogeneous in density and normal in configuration. Both kidneys enhance with contrast. No mass or obstruction is seen. There are tiny calculi in the left kidney. The adrenal glands are not enlarged. The pancreas shows no mass or apparent inflammation. The pancreatic tail appears thinner than on the previous exam. This could indicate some atrophy. No retroperitoneal or mesenteric adenopathy is seen. There is no apparent abdominal mass or inflammatory process. Images through the pelvis show no abnormality of the distal ureters. The bladder was not well distended but appears normal. No pelvic or inguinal adenopathy is seen. There is no apparent pelvic soft tissue mass. There is a cystic structure in the upper left pelvis measuring about 2.9 cm. The patient apparently has had a hysterectomy, but this could be within a remaining left ovary. No inflammatory process is seen. IMPRESSION: Probable left ovarian cyst. No definite acute findings. The pancreas may have undergone some atrophy since the prior exam without evidence of a mass or other abnormality. This could be the result of prior pancreatitis. Course & Med Decision Making: Course & Med Decision Making Pertinent Labs and Imaging studies reviewed. (See chart for details) [] ED course: Evaluation reveals a 34-year-old female with abdominal pain. She was given IV fluids, Toradol, fentanyl and Zofran during her stay in the department which did help alleviate her symptoms. Her CT scan did not show anything surgical in nature was likely an ovarian cyst. I believe she is stable for discharge at this time. Dragon Disclaimer: Dragon Disclaimer: This electronic medical record was generated, in whole or in part, using a voice recognition dictation system. Departure Departure Impression: Primary Impression: Abdominal pain Qualified Codes: R10.30 - Lower abdominal pain, unspecified Additional Impression: Ovarian cyst Qualified Codes: N83.202 - Unspecified ovarian cyst, left side Disposition: HOME, SELF-CARE Condition: IMPROVED Referrals: NO PCP (PCP) Patient Instructions: Abdominal Pain, Ovarian Cyst Additional Instructions: Return to the emergency department with any new or concerning symptoms Scripts Hydrocodone/Apap 5-325 (NORCO 5-325 TABLET) 1 Each Tablet 1 TAB PO PRN Q6HRS PRN for PAIN, #15 TAB 0 Refills Prov: WILMAR WEBB DO 01/09/20 WILMAR WEBB DO January 09, 2020 15:56
[2020-01-09] MEDS: ONDANSETRON PF 4 MG/2 ML VIAL. IV ONE (16:02)
[2020-01-09] MEDS: IV NORMAL SALINE 1000ML BAG 1,000 ML IV ONE (16:02)
[2020-01-09 16:03] LABS: BASO % 1 % (0-3); EOS # 0.2 x10^3/uL (0.0-0.7); EOS % 3 % (0-3); HEMOGLOBIN 15.3 g/dL (12.0-15.5); LYMPH # 2.6 x10^3/uL (1.0-4.8); LYMPH % 50 % (24-48); MEAN CORPUSCULAR HEMOGLOBIN 28 pg (25-35); MEAN CORPUSCULAR HGB CONC 33 g/dL (31-37); MEAN CORPUSCULAR VOLUME 83 fL (79-100); MONO # 0.3 x10^3/uL (0.0-1.1); MONO % 6 % (0-9); NEUT # 2.1 x10^3/uL (1.8-7.7); NEUT % 41 % (31-73); PLATELET COUNT 279 x10^3/uL (140-400); RED BLOOD COUNT 5.54 x10^6/uL (3.50-5.40); RED CELL DISTRIBUTION WIDTH 14.3 % (11.5-14.5); WHITE BLOOD COUNT 5.2 x10^3/uL (4.0-11.0)
[2020-01-09] MEDS: fentaNYL PF VIAL 100 MCG/2 ML VIAL IV ONE (16:03)
[2020-01-09] MEDS: KETOROLAC 30 MG/ML VIAL. IV ONE (16:03)
[2020-01-09 16:12] LABS: CALCIUM 9.2 mg/dL (8.5-10.1); CREATININE 0.8 mg/dL (0.6-1.0); GFR 98.8; POTASSIUM 3.9 mmol/L (3.5-5.1)
[2020-01-09 16:19] LABS: ALBUMIN 3.8 g/dL (3.4-5.0); ALBUMIN/GLOBULIN RATIO 0.9 (1.0-1.7); TOTAL BILIRUBIN 0.3 mg/dL (0.2-1.0); TOTAL PROTEIN 8.2 g/dL (6.4-8.2)
[2020-01-09] MEDS ORDERED: CONTRAST GIVEN. MC PRN (16:30)
[2020-01-09 16:42] LABS: BILIRUBIN,URINE NEGATIVE (NEG); CLARITY,URINE CLOUDY; COLOR,URINE YELLOW; NITRITE,URINE NEGATIVE (NEG); PH,URINE 5.5 (<5.0-8.0); PROTEIN,URINE NEGATIVE (NEG-TRACE)
[2020-01-09 16:48] LABS: BACTERIA,URINE FEW /HPF (0-FEW); RBC,URINE 0 /HPF (0-2); SQUAMOUS EPITHELIAL CELL,UR MANY /LPF; WBC,URINE OCC /HPF (0-4)
[2020-01-09] MEDS: IOHEXOL 300 MG/ML 100ML VIAL. IV ONE (16:48)
--- NOTE | 2020-01-09 17:11 | RAD ---
CT abdomen and pelvis with IV contrast 01/09/2020. Reason for exam: Lower abdominal pain for [address] images were made through the abdomen and pelvis using an infusion of 75 mL Omnipaque 300. No oral contrast was given. Exposure: One or more of the following individualized dose reduction techniques were utilized for this examination: 1. Automated exposure control 2. Adjustment of the mA and/or kV according to patient size 3. Use of iterative reconstruction technique. Comparison is made with a study of 06/04/2018. FINDINGS: The lung bases are clear. The liver and spleen are homogeneous in density and normal in configuration. Both kidneys enhance with contrast. No mass or obstruction is seen. There are tiny calculi in the left kidney. The adrenal glands are not enlarged. The pancreas shows no mass or apparent inflammation. The pancreatic tail appears thinner than on the previous exam. This could indicate some atrophy. No retroperitoneal or mesenteric adenopathy is seen. There is no apparent abdominal mass or inflammatory process. Images through the pelvis show no abnormality of the distal ureters. The bladder was not well distended but appears normal. No pelvic or inguinal adenopathy is seen. There is no apparent pelvic soft tissue mass. There is a cystic structure in the upper left pelvis measuring about 2.9 cm. The patient apparently has had a hysterectomy, but this could be within a remaining left ovary. No inflammatory process is seen. IMPRESSION: Probable left ovarian cyst. No definite acute findings. The pancreas may have undergone some atrophy since the prior exam without evidence of a mass or other abnormality. This could be the result of prior pancreatitis. Electronically signed by: Chivo Rodriguez Jr., MD (01/09/2020 5:08 PM) [id number]
[2020-01-09] MEDS ORDERED: HYDR-3164 PO (17:18)
== END 2020-01-09 18:00 | disposition home or self-care (01) ==
LOC: ER 15:14
DX: N83.292 Other ovarian cyst, left side (principal); R10.31 Right lower quadrant pain; R10.33 Periumbilical pain; G89.29 Other chronic pain; Z90.710 Acquired absence of both cervix and uterus; Z98.890 Other specified postprocedural states
CPT/HCPCS: 36415; 74177; 80053; 81001; 81025; 83690; 85025; 96374; 96375; 99285; J1885; J2405; J3010; J7030; Q9967

== ENCOUNTER 2020-02-20 13:44 | Emergency (ER) | payer SELFPAY ==
[~2020-02-20] VITALS: Ht 160 cm; Wt 80.0 kg
[~2020-02-20 13:44] MED LIST changes: +HYDR-3164 PO
--- NOTE | 2020-02-20 14:41 | PHYS DOC ---
Past Medical History Past Medical History: No Pertinent History Additional Past Medical Histor: chronic right ankle pain Past Surgical History: Hysterectomy Additional Past Surgical Histo: L fallopian tube removed, ECTOPIC , PARTIAL HYSTERECTOMY 2007 Smoking Status: Unknown if ever smoked Alcohol Use: None Drug Use: None General Adult EDM: Chief Complaint: PELVIC PAIN HPI: HPI: Patient is a 35 year old AA female who presents to the ER with complaints of left flank and pelvic pain since yesterday. PT denies any hematuria, dysuria, or difficulty voiding. She reports some slight increase in frequency. Pt denies any irregular vaginal discharge, vaginal odor, vomiting, diarrhea, fever, cough, shortness of breath, chest pain, or palpitations. She denies body aches or fatigue. She reports that a month ago she was diagnosed with a cyst at this hospital. She currently rates her pain a 8/10 on the pain scale. She denies any alleviating or exacerbating factors. Review of Systems: Review of Systems: Constitutional: Denies fever or chills. [] Eyes: Denies change in visual acuity. [] HENT: Denies nasal congestion or sore throat. [] Respiratory: Denies cough or shortness of breath. [] Cardiovascular: Denies chest pain or edema. [] GI: Denies vomiting, bloody stools or diarrhea; reports nausea see HPI. [] : See HPI Musculoskeletal: Denies back pain or joint pain. [] Integument: Denies rash. [] Neurologic: Denies headache, focal weakness or sensory changes. [] Endocrine: Denies polyuria or polydipsia. [] Lymphatic: Denies swollen glands. [] Psychiatric: Denies depression or anxiety. [] Heart Score: Risk Factors: Risk Factors: DM, Current or recent (<one month) smoker, HTN, HLP, family histo ry of CAD, obesity. Risk Scores: Score 0 - 3: 2.5% MACE over next 6 weeks - Discharge Home Score 4 - 6: 20.3% MACE over next 6 weeks - Admit for Clinical Observation Score 7 - 10: 72.7% MACE over next 6 weeks - Early Invasive Strategies Allergies: Allergies: Allergies Coded Allergies Type Severity Reaction Last Updated Verified naproxen Allergy Intermediate "Chest hurts" 07/12/14 Yes Physical Exam: PE: Constitutional: Well developed, well nourished, no acute distress, non-toxic appearance. [] HENT: Normocephalic, atraumatic, bilateral external ears normal, oropharynx moist, no oral exudates, nose normal. [] Eyes: PERRLA, EOMI, conjunctiva normal, no discharge. [] Neck: Normal range of motion, no tenderness, supple, no stridor. [] Cardiovascular:Heart rate regular rhythm, no murmur [] Lungs & Thorax: Bilateral breath sounds clear to auscultation [] Abdomen: Bowel sounds normal, soft, lower left quadrant and suprapubic tenderness to palpation, no guarding, no rebound tenderness, no masses, no pulsatile masses. [] Skin: Warm, dry, no erythema, no rash. [] Back: No bony tenderness, L CVA tenderness. [] Extremities: No cyanosis, ROM intact, no edema. [] Neurologic: Alert and oriented X 3, no focal deficits noted. [] Psychologic: Affect normal, judgement normal, mood normal. [] EKG: EKG: [] Radiology/Procedures: Radiology/Procedures: PROCEDURE: CT ABDOMEN PELVIS WO CONTRAST EXAM: CT Abdomen and Pelvis without IV contrast INDICATION: Reason: left flank pain / Spl. Instructions: / History: TECHNIQUE: Multi-detector row CT images were acquired from the lung bases through the abdomen and pelvis without the use of IV contrast. Sagittal and coronal images were acquired from the transaxial data. All CT scans performed at this facility utilize dose optimization techniques as appropriate to the exam, including the following: Automated exposure control and adjustment of the mA and/or KV according to patient size (this includes techniques or standardized protocols for targeted exams where dose is indication/reason for exam). ORAL CONTRAST: None COMPARISON: 01/09/2020. FINDINGS: The absence of IV contrast limits evaluation of soft tissue pathology. LOWER CHEST: Unremarkable LIVER: Unremarkable BILIARY SYSTEM: Gallbladder is unremarkable. Bile ducts are not dilated. PANCREAS: Unremarkable SPLEEN: Unremarkable ADRENALS: Unremarkable KIDNEYS & URETERS: Punctate nonobstructing 1 to 2 mm stones in the superior and inferior right kidney are present. Left kidney shows at least 3 nonobstructing stones measuring between 3 and 4 mm. No hydronephrosis or hydroureter and no perirenal soft tissue stranding. No definite stones identified along the course of the left ureter. BLADDER: Unremarkable REPRODUCTIVE ORGANS: Hysterectomy. Left adnexal 2.6 cm ovarian cyst. Otherwise no adnexal mass. Right ovary not well seen. GASTROINTESTINAL: There is a segment of large bowel in the descending colon that appears spasmed and shows possibly artifactual circumferential wall thickening, best illustrated on coronal image 42 of series 4 and hospital insurance representative axial image 1 3 of series 2. The stomach, small bowel, and colon are otherwise unremarkable. The appendix is normal. MESENTERY/PERITONEUM/RETROPERITONEUM: There is subtle soft tissue stranding surrounding the SMA that is of uncertain clinical significance. VASCULAR: Unremarkable LYMPH NODES: No adenopathy OSSEOUS & SOFT TISSUES: Unremarkable IMPRESSION: 1. Bilateral nephrolithiasis without findings of obstructive uropathy. 2. Probable peristaltic contraction in the descending colon without associated findings of acute inflammation. 3. Minimal soft tissue stranding around the SMA is of uncertain clinical significance. Correlate for any evidence of acute pancreatitis or other acute inflammatory changes in the upper abdomen. 4. Otherwise no acute findings on noncontrast CT of the abdomen and pelvis. [] Course & Med Decision Making: Course & Med Decision Making Pertinent Labs and Imaging studies reviewed. (See chart for details) Patient is a 35-year-old -[place] female who presented to the emergency room with complaints of left flank and left lower pelvic pain that began yesterday. Patient also reported having increased abdominal bloating and gas. She stated that her last bowel movement was 2 days ago. Work-up in the emergency department included a urinalysis, CBC, CMP, lipase and CT abdomen pelvis without contrast. CBC, CMP, lipase and UA were all unremarkable CT revealed probable. Stalter contraction in the descending colon without any associated findings of acute inflammation. I discussed this result with the patient and advised that the descending colon is in the area where she was experiencing the pain. I recommended that the patient take some MiraLAX to help relieve constipation and also recommended [id number] Gas-X or simethicone as needed to help with gas and bloating. Recommend that the patient avoids vegetables and dairy products as this time as they can contribute to abdominal bloating and gas. Recommended a bland diet and increase clear fluids. Encouraged the patient to follow-up with her primary care doctor symptoms persist, return to the ER if symptoms worsen. In the emergency department patient was given a liter of normal saline, 4 mg of Zofran, 15 mg of Toradol, and 4 mg of morphine. She reported no benefit after the Toradol however stated she was feeling much better after receiving the morphine. Patient verbalized an understanding of home care, medications, follow-up, and return to ED instructions and was in agreement with the plan of care. [] Dragon Disclaimer: Dragon Disclaimer: This electronic medical record was generated, in whole or in part, using a voice recognition dictation system. Departure Departure Impression: Primary Impression: Abdominal pain, left lateral Additional Impression: IBS (irritable bowel syndrome) Qualified Codes: K58.1 - Irritable bowel syndrome with constipation Disposition: HOME, SELF-CARE Condition: STABLE Patient Instructions: Abdominal Pain (Nonspecific), Irritable Bowel Syndrome Additional Instructions: Recommend [id number] MiraLAX and Gas-X to help with abdominal bloating and constipation. Follow-up with your primary care doctor next week if symptoms persist, return to the ER if symptoms worsen. Justicifation of Admission Dx: Justifications for Admission: Justification of Admission Dx: N/A RON HOPE APRN Feb 20, 2020 14:41
[2020-02-20] MEDS ORDERED: KETOROLAC 15 MG/ML VIAL. IVP ONE (15:00)
[2020-02-20] MEDS ORDERED: ONDANSETRON PF 4 MG/2 ML VIAL. IV ONE (15:00)
[2020-02-20] MEDS ORDERED: IV NORMAL SALINE 1000ML BAG 1,000 ML IV ONE (15:00)
[2020-02-20 15:02] LABS: BILIRUBIN,URINE NEGATIVE (NEG); CLARITY,URINE CLEAR; COLOR,URINE YELLOW; NITRITE,URINE NEGATIVE (NEG); PROTEIN,URINE NEGATIVE (NEG-TRACE); UROBILINOGEN,URINE 0.2 mg/dL (0.2 mg/dL)
[2020-02-20 15:09] LABS: BACTERIA,URINE FEW /HPF (0-FEW); RBC,URINE RARE /HPF (0-2); SQUAMOUS EPITHELIAL CELL,UR MANY /LPF; WBC,URINE OCC /HPF (0-4)
[2020-02-20 15:24] LABS: BASO # 0.1 x10^3/uL (0.0-0.2); BASO % 2 % (0-3); EOS # 0.1 x10^3/uL (0.0-0.7); EOS % 2 % (0-3); HEMATOCRIT 41.3 % (36.0-47.0); HEMOGLOBIN 14.2 g/dL (12.0-15.5); LYMPH # 1.8 x10^3/uL (1.0-4.8); LYMPH % 40 % (24-48); MEAN CORPUSCULAR HEMOGLOBIN 28 pg (25-35); MEAN CORPUSCULAR HGB CONC 34 g/dL (31-37); MEAN CORPUSCULAR VOLUME 83 fL (79-100); MONO # 0.2 x10^3/uL (0.0-1.1); MONO % 5 % (0-9); NEUT # 2.3 x10^3/uL (1.8-7.7); NEUT % 52 % (31-73); PLATELET COUNT 254 x10^3/uL (140-400); RED CELL DISTRIBUTION WIDTH 14.5 % (11.5-14.5); WHITE BLOOD COUNT 4.4 x10^3/uL (4.0-11.0)
[2020-02-20 15:34] LABS: CALCIUM 9.1 mg/dL (8.5-10.1); CREATININE 0.9 mg/dL (0.6-1.0); GFR 85.7; POTASSIUM 4.2 mmol/L (3.5-5.1)
[2020-02-20 15:39] LABS: ALBUMIN 3.4 g/dL (3.4-5.0); ALBUMIN/GLOBULIN RATIO 0.8 (1.0-1.7); TOTAL BILIRUBIN 0.3 mg/dL (0.2-1.0); TOTAL PROTEIN 7.8 g/dL (6.4-8.2)
--- NOTE | 2020-02-20 15:53 | RAD ---
EXAM: CT Abdomen and Pelvis without IV contrast INDICATION: Reason: left flank pain / Spl. Instructions: / History: TECHNIQUE: Multi-detector row CT images were acquired from the lung bases through the abdomen and pelvis without the use of IV contrast. Sagittal and coronal images were acquired from the transaxial data. All CT scans performed at this facility utilize dose optimization techniques as appropriate to the exam, including the following: Automated exposure control and adjustment of the mA and/or KV according to patient size (this includes techniques or standardized protocols for targeted exams where dose is indication/reason for exam). ORAL CONTRAST: None COMPARISON: 01/09/2020. FINDINGS: The absence of IV contrast limits evaluation of soft tissue pathology. LOWER CHEST: Unremarkable LIVER: Unremarkable BILIARY SYSTEM: Gallbladder is unremarkable. Bile ducts are not dilated. PANCREAS: Unremarkable SPLEEN: Unremarkable ADRENALS: Unremarkable KIDNEYS & URETERS: Punctate nonobstructing 1 to 2 mm stones in the superior and inferior right kidney are present. Left kidney shows at least 3 nonobstructing stones measuring between 3 and 4 mm. No hydronephrosis or hydroureter and no perirenal soft tissue stranding. No definite stones identified along the course of the left ureter. BLADDER: Unremarkable REPRODUCTIVE ORGANS: Hysterectomy. Left adnexal 2.6 cm ovarian cyst. Otherwise no adnexal mass. Right ovary not well seen. GASTROINTESTINAL: There is a segment of large bowel in the descending colon that appears spasmed and shows possibly artifactual circumferential wall thickening, best illustrated on coronal image 42 of series 4 and licensing representative axial image 1 3 of series 2. The stomach, small bowel, and colon are otherwise unremarkable. The appendix is normal. MESENTERY/PERITONEUM/RETROPERITONEUM: There is subtle soft tissue stranding surrounding the SMA that is of uncertain clinical significance. VASCULAR: Unremarkable LYMPH NODES: No adenopathy OSSEOUS & SOFT TISSUES: Unremarkable IMPRESSION: 1. Bilateral nephrolithiasis without findings of obstructive uropathy. 2. Probable peristaltic contraction in the descending colon without associated findings of acute inflammation. 3. Minimal soft tissue stranding around the SMA is of uncertain clinical significance. Correlate for any evidence of acute pancreatitis or other acute inflammatory changes in the upper abdomen. 4. Otherwise no acute findings on noncontrast CT of the abdomen and pelvis. Electronically signed by: Mily Perez MD (02/20/2020 3:50 PM) [id number]
[2020-02-20] MEDS ORDERED: MORPHINE SULFATE 4 MG/ML VIAL. IV ONE (16:00)
[2020-02-20 16:34] VITALS: BP 146/81
== END 2020-02-20 17:05 | disposition home or self-care (01) ==
LOC: ER 13:44
DX: K58.1 Irritable bowel syndrome with constipation (principal); R10.2 Pelvic and perineal pain; G89.29 Other chronic pain; Z90.710 Acquired absence of both cervix and uterus; Z98.890 Other specified postprocedural states; Z88.8 Allergy status to other drugs, medicaments and biological substances
CPT/HCPCS: 36415; 74176; 80053; 81001; 81025; 83690; 85025; 96374; 96375; 99284; J1885; J2270; J2405; J7030